=== PATIENT | female | born 1940 | race Caucasian/White ===

== ENCOUNTER 2017-07-24 13:49 | Inpatient (IN) | payer OTHER, MEDICARE ==
[~2017-07-24] VITALS: Ht 167.6 cm; Wt 54.5 kg
[2017-07-24] VITALS (11 sets, daily range): BP systolic 112–175; BP diastolic 58–77; PULSE 64–110; RESP 16–20; TEMP 98.3–99; O2SAT 95–98
[~2017-07-24 13:49] MED LIST: CALA120T PO; DULO60 PO; ENOX40P SQ; HYDR-2768 PO; HYDR200T3 PO; MELA5TAB10 PO; NEUR600T PO; OMPR20CCR PO; OXYC1SOL5 PO; TAB-TAB PO; TYLE500T PO; Z.0.COMMODE-3:1; Z.0.CPM; Z.0.WALKERFRONT
--- NOTE | 2017-07-24 14:40 | PD ---
HPI Chief Complaint: Abdominal Pain Time Seen by Provider: 14:25 Travel History International Travel<30 days: No Contact w/Intl Traveler<30days: No Traveled to known affect area: No History of Present Illness HPI This is a 77-year-old female who reports a history of peptic ulcer disease. She presents for evaluation of chest pain, abdominal pain, nausea and vomiting. She reports that 5 PM yesterday she was sitting in her sunroom which she developed epigastric/substernal pains, nausea, vomiting. She describes the pain as a pressure type pain which has been constant but is more mild today. There are no obvious aggravating or alleviating factors to this pain. She reports today she has had some nausea but no vomiting. She called her automation driver who referred her here. She does report that she had a temperature of 100 yesterday as well as chills. She denies cough or congestion , shortness of breath, diarrhea, dysuria, flank pain. She has no other complaints at this time. 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) Psychiatric: No Reproductive: No Respiratory: No Immunizations Current: Yes Radiation Therapy: No Thyroid Disease: No Past Surgical History Abdominal Surgery: Yes (hernia) AICD: No Body Medical Devices: LEFT BREAST IMPLANT Cardiac Surgery: No Ear Surgery: No Endocrine Surgery: No Genitourinary Surgery: No Gynecologic Surgery: No Joint Replacement: Yes (left knee) Oral Surgery: No Pacemaker: No Thoracic Surgery: No Other Surgery: Yes (mastectomy, ) Social History Alcohol Use: No Tobacco Use: No Substance Use: No Allergies-Medications (Allergen,Severity, Reaction): Coded Allergies: No Known Allergies (Unverified Adverse Reaction, Unknown, 07/24/17) Reported Meds & Prescriptions Reported Meds & Active Scripts Active Reported Extra Strength Pain Relief (Acetaminophen) 500 Mg Tab 1,000 Mg PO Q4-6H PRN Duloxetine DR (Duloxetine HCl) 60 Mg Capdr 60 Mg PO DAILY Gabapentin 600 Mg Tab 600 Mg PO TID Melatonin 10 Mg-1 Mg Tab 10 Mg PO HS PRN Multiple Vitamin 1 Tab 1 Tab PO DAILY Omeprazole 20 Mg Tab 20 Mg PO DAILY Verapamil (Verapamil HCl) 120 Mg Tab 120 Mg PO DAILY Review of Systems Except as stated in HPI: all other systems reviewed are Neg Physical Exam Narrative GENERAL: Pleasant well-developed well-nourished female who is resting comfortably in hospital bed. Her vital signs have been reviewed. SKIN: Warm and dry. HEAD: Atraumatic. Normocephalic. EYES: Pupils equal and round. No scleral icterus. No injection or drainage. ENT: No nasal bleeding or discharge. Mucous membranes pink and moist. NECK: Trachea midline. No JVD. CARDIOVASCULAR: Regular rate and rhythm. No murmur appreciated. RESPIRATORY: No accessory muscle use. Clear to auscultation. Breath sounds equal bilaterally. GASTROINTESTINAL: Abdomen soft, mild epigastric/left upper quadrant tenderness without guarding. MUSCULOSKELETAL: No obvious deformities. No clubbing. No cyanosis. No edema. NEUROLOGICAL: Awake and alert. No obvious cranial nerve deficits. Motor grossly within normal limits. Normal speech. PSYCHIATRIC: Appropriate mood and affect; insight and judgment normal. Data Data Last Documented VS Vital Signs Date Time Temp Pulse Resp B/P (MAP) Pulse Ox O2 Delivery O2 Flow Rate FiO2 07/24/17 16:45 68 16 122/67 (85) 98 Nasal Cannula 07/24/17 15:05 2.00 07/24/17 14:40 98.8 Orders Orders Electrocardiogram (07/24/17 14:01) Ckmb (Isoenzyme) Profile (07/24/17 14:37) Complete Blood Count With Diff (07/24/17 14:37) Magnesium (Mg) (07/24/17 14:37) Prothrombin Time / Inr (Pt) (07/24/17 14:37) Act Partial Throm Time (Ptt) (07/24/17 14:37) Troponin I (07/24/17 14:37) Chest, Single Ap (07/24/17 14:37) Ecg Monitoring (07/24/17 14:37) Bilateral Bp Monitoring (07/24/17 14:37) Iv Access Insert/Monitor (07/24/17 14:37) Oximetry (07/24/17 14:37) Oxygen Administration (07/24/17 14:37) Aspirin Chew (Aspirin Chew) (07/24/17 14:45) Morphine Inj (Morphine Inj) (07/24/17 14:45) Sodium Chloride 0.9% Flush (Ns Flush) (07/24/17 14:45) Nitroglycerin Sl (Nitrostat Sl) (07/24/17 14:45) Comprehensive Metabolic Panel (07/24/17 14:37) Lipase (07/24/17 14:37) Lactic Acid Sepsis Protocol (07/24/17 14:40) Blood Culture (07/24/17 14:40) Al-Mag Hy-Si 40-40-4 Mg/Ml Liq (Mag-Al P (07/24/17 14:45) Lidocaine 2% Viscous (Xylocaine 2% Visco (07/24/17 14:45) CKMB (07/24/17 14:40) CKMB% (07/24/17 14:40) Heparin Infusion NICOLE.Q1H (07/24/17 16:17) Heparin Inj (Heparin Inj) (07/24/17 16:30) Heparin Inj (Heparin Inj) (07/24/17 22:30) Heparin Inj (Heparin Inj) (07/24/17 22:30) Heparin-D5w 25,000 U/250 Ml (Heparin-D5w (07/24/17 16:30) Act Partial Throm Time (Ptt) (07/24/17 16:17) Cbc No Diff, Includes Plts (07/24/17 16:17) Cbc No Diff, Includes Plts (07/27/17 06:00) Act Partial Throm Time (Ptt) (07/24/17 23:17) Occult Blood (Hemoccult) Stool (07/24/17 16:17) Consult Gastroenterology (07/24/17 ) Consult Cardiology (07/24/17 ) Admit To Inpatient (07/24/17 ) Vital Signs (Adult) Q4H (07/24/17 16:37) Activity Oob With Assistance (07/24/17 16:37) Lead Shipper / Telemetry .CONTINUOUS (07/24/17 16:37) Diet Heart Healthy (07/24/17 Dinner) Sodium Chloride 0.9% Flush (Ns Flush) (07/24/17 16:45) Sodium Chloride 0.9% Flush (Ns Flush) (07/24/17 21:00) Acetaminophen (Tylenol) (07/24/17 16:45) Ondansetron Inj (Zofran Inj) (07/24/17 16:45) Basic Metabolic Panel (Bmp) (07/25/17 06:00) Complete Blood Count With Diff (07/25/17 06:00) Troponin I (07/24/17 16:37) Troponin I (07/24/17 22:37) Electrocardiogram (07/24/17 16:37) Electrocardiogram (07/24/17 22:37) Naloxone Inj (Narcan Inj) (07/24/17 16:45) Magnesium Hydroxide Liq (Milk Of Magnesi (07/24/17 16:45) Sennosides (Senokot) (07/24/17 16:45) Bisacodyl Supp (Dulcolax Supp) (07/24/17 16:45) Lactulose Liq (Lactulose Liq) (07/24/17 16:45) Inpatient Certification (07/24/17 ) Cardiac Catheterization (07/24/17 ) Heparin-Ns/Pf Inj (Heparin-Ns/Pf Inj) (07/24/17 16:52) Verapamil Inj (Isoptin Inj) (07/24/17 16:52) Heparin Inj (Heparin Inj) (07/24/17 16:52) Nitroglycerin Inj (Nitroglycerin Inj) (07/24/17 16:52) Labs Laboratory Tests Test 07/24/17 14:40 07/24/17 14:51 White Blood Count 9.3 TH/MM3 Red Blood Count 4.43 MIL/MM3 Hemoglobin 13.7 GM/DL Hematocrit 39.8 % Mean Corpuscular Volume 89.9 FL Mean Corpuscular Hemoglobin 31.0 PG Mean Corpuscular Hemoglobin Concent 34.5 % Red Cell Distribution Width 14.6 % Platelet Count 206 TH/MM3 Mean Platelet Volume 7.3 FL Neutrophils (%) (Auto) 89.1 % Lymphocytes (%) (Auto) 6.1 % Monocytes (%) (Auto) 4.5 % Eosinophils (%) (Auto) 0.2 % Basophils (%) (Auto) 0.1 % Neutrophils # (Auto) 8.3 TH/MM3 Lymphocytes # (Auto) 0.6 TH/MM3 Monocytes # (Auto) 0.4 TH/MM3 Eosinophils # (Auto) 0.0 TH/MM3 Basophils # (Auto) 0.0 TH/MM3 CBC Comment DIFF FINAL Differential Comment Prothrombin Time 10.9 SEC Prothromb Time International Ratio 1.0 RATIO Activated Partial Thromboplast Time 29.6 SEC Blood Urea Nitrogen 10 MG/DL Creatinine 0.69 MG/DL Random Glucose 83 MG/DL Total Protein 7.6 GM/DL Albumin 3.7 GM/DL Calcium Level 8.8 MG/DL Magnesium Level 1.9 MG/DL Alkaline Phosphatase 63 U/L Aspartate Amino Transf (AST/SGOT) 37 U/L Alanine Aminotransferase (ALT/SGPT) 23 U/L Total Bilirubin 0.6 MG/DL Sodium Level 135 MEQ/L Potassium Level 3.2 MEQ/L Chloride Level 100 MEQ/L Carbon Dioxide Level 27.2 MEQ/L Anion Gap 8 MEQ/L Estimat Glomerular Filtration Rate 82 ML/MIN Total Creatine Kinase 127 U/L Creatine Kinase MB 8.2 NG/ML Troponin I 2.53 NG/ML Lipase 96 U/L Lactic Acid Level 0.7 mmol/L [facility] Medical Decision Making Medical Screen Exam Complete: Yes Emergency Medical Condition: Yes Medical Record Reviewed: Yes Interpretation(s) EKG reveals sinus rhythm, slight ST elevation noted isolated in V3. There are T -wave inversions noted in 2, 3, aVF, V4 and V5. Differential Diagnosis Acute coronary syndrome, angina, peptic ulcer disease, pancreatitis, colitis, aortic dissection, pulmonary embolism, gastroenteritis, renal stone, pneumonia Narrative Course The patient was placed on ECG monitoring pulse oximetry. A 12-lead EKG was obtained which reveals slight ST elevation isolated in V3 as well as inferior and lateral T-wave inversions. Plan is for lab work, chest x-ray, urinalysis. The patient will be given sublingual nitroglycerin. The patient's troponin is 2.53. Potassium 3.2. Discussed with Dr. Gerber is agreeable with admission to the medicine service, heparin, and he will consult. Diagnosis Primary Impression: NSTEMI (non-ST elevated myocardial infarction) Admitting Information Admitting Physician Requests: Admit Bebeto Kamara Jul 24, 2017 14:40
[2017-07-24] MEDS ORDERED: SODIUM CHLORIDE 0.9% FLUSH 10 ML FLUSH IVF PRN (14:45)
[2017-07-24] MEDS ORDERED: ASPIRIN 81 MG CHEW TAB PO ONE (14:45)
[2017-07-24] MEDS ORDERED: MORPHINE SULFATE 4 MG/ML INJ IV PUSH ONE (14:45)
[2017-07-24] MEDS ORDERED: ALUMINUM/MAGNESIUM/SIMETH 30 ML CUP PO ONE (14:45)
[2017-07-24] MEDS ORDERED: LIDOCAINE VISCOUS 2% SOLN 15 ML UDC PO ONE (14:45)
[2017-07-24] MEDS ORDERED: VERA120T3 PO (14:49)
[2017-07-24] MEDS ORDERED: MULTTAB67 PO (14:49)
[2017-07-24] MEDS ORDERED: OMEP20TA PO (14:49)
[2017-07-24] MEDS: NITROGLYCERIN 0.4 MG SL 25 TABS/BTL SL SCH ×3 (14:55→15:06)
--- NOTE | 2017-07-24 15:11 | RADRPT ---
EXAM DATE/TIME: 07/24/2017 14:58 [place] COMPARISON: No previous studies available for comparison. INDICATIONS : Chest and abdomen pain today MEDICAL HISTORY : Ulcers. SURGICAL HISTORY : None. ENCOUNTER: Initial ACUITY: 1 day PAIN SCORE: 7/10 LOCATION: Bilateral chest FINDINGS: A single view of the chest demonstrates the lungs to be symmetrically aerated without evidence of mas s, infiltrate or effusion. The cardiomediastinal contours are unremarkable. Osseous structures are intact. CONCLUSION: No acute disease. Kaleb Yin MD FACR on July 24, 2017 at 15:09 Board Certified Radiologist. This report was verified electronically.
[2017-07-24 15:12] LABS: AUTOMATED NEUTROPHIL # 8.3 TH/MM3 (1.8-7.7); BASOPHIL % 0.1 % (0.0-2.0); EOSINOPHIL % 0.2 % (0.0-4.0); HEMATOCRIT 39.8 % (35.0-46.0); HEMO FLAGS DIFF FINAL; LYMPH % 6.1 % (9.0-44.0); LYMPHOCYTE # 0.6 TH/MM3 (1.0-4.8); MEAN CELL VOLUME 89.9 FL (80.0-100.0); MEAN CORPUSCULAR HGB CONC 34.5 % (32.0-36.0); MONO % 4.5 % (0.0-8.0); NEUT % 89.1 % (16.0-70.0); PLATELET COUNT 206 TH/MM3 (150-450); RED BLOOD COUNT 4.43 MIL/MM3 (4.00-5.30); RED CELL DISTRIBUTION WIDTH 14.6 % (11.6-17.2); WHITE BLOOD COUNT 9.3 TH/MM3 (4.0-11.0)
[2017-07-24 15:21] LABS: APTT (PATIENT) 29.6 SEC (24.3-30.1); PROTHROMBIN TIME - PATIENT 10.9 SEC (9.8-11.6)
[2017-07-24] MEDS ORDERED: MELA1TAB18 PO (15:28)
[2017-07-24] MEDS ORDERED: EXTRTAB5 PO (15:28)
[2017-07-24] MEDS ORDERED: GABA600T PO (15:28)
[2017-07-24] MEDS ORDERED: DULO1CAP3 PO (15:28)
[2017-07-24 15:39] LABS: ALT (GPT) 23 U/L (10-53); ANION GAP 8 MEQ/L (5-15); AST (GOT) 37 U/L (15-37); BICARBONATE 27.2 MEQ/L (21.0-32.0); BLOOD UREA NITROGEN 10 MG/DL (7-18); CHLORIDE 100 MEQ/L (98-107); GLOMERULAR FILTRATION RATE 82 ML/MIN (>89); MAGNESIUM 1.9 MG/DL (1.5-2.5); POTASSIUM 3.2 MEQ/L (3.5-5.1); SODIUM (NA) 135 MEQ/L (136-145)
[2017-07-24 15:43] LABS: ALKALINE PHOSPHATASE 63 U/L (45-117); CREATINE KINASE 127 U/L (26-192); TOTAL BILIRUBIN ADULT 0.6 MG/DL (0.2-1.0)
[2017-07-24 16:00] LABS: CKMB 8.2 NG/ML (0.5-3.6)
--- NOTE | 2017-07-24 16:22 | PD ---
Physical Exam Date Seen by Provider: Jul 24, 2017 Time Seen by Provider: 15:00 Narrative This is a 77-year-old female with history of peptic ulcer disease, stomach polyps, colonic ulcers, who presents today with epigastric pain with associated chest discomfort. The patient states it started yesterday. She reports it as burning and tightness. She states that it felt as though it was her peptic ulcer disease was causing this discomfort. She states she called the pole tester and they referred her here for further evaluation. Data Data Last Documented VS Vital Signs Date Time Temp Pulse Resp B/P (MAP) Pulse Ox O2 Delivery O2 Flow Rate FiO2 07/24/17 15:30 64 126/72 (90) 07/24/17 15:05 96 Nasal Cannula 2.00 07/24/17 14:40 98.8 18 Orders Orders Electrocardiogram (07/24/17 14:01) Electrocardiogram (07/24/17 14:37) Ckmb (Isoenzyme) Profile (07/24/17 14:37) Complete Blood Count With Diff (07/24/17 14:37) Magnesium (Mg) (07/24/17 14:37) Prothrombin Time / Inr (Pt) (07/24/17 14:37) Act Partial Throm Time (Ptt) (07/24/17 14:37) Troponin I (07/24/17 14:37) Chest, Single Ap (07/24/17 14:37) Ecg Monitoring (07/24/17 14:37) Bilateral Bp Monitoring (07/24/17 14:37) Iv Access Insert/Monitor (07/24/17 14:37) Oximetry (07/24/17 14:37) Oxygen Administration (07/24/17 14:37) Aspirin Chew (Aspirin Chew) (07/24/17 14:45) Morphine Inj (Morphine Inj) (07/24/17 14:45) Sodium Chloride 0.9% Flush (Ns Flush) (07/24/17 14:45) Nitroglycerin Sl (Nitrostat Sl) (07/24/17 14:45) Comprehensive Metabolic Panel (07/24/17 14:37) Lipase (07/24/17 14:37) Lactic Acid Sepsis Protocol (07/24/17 14:40) Blood Culture (07/24/17 14:40) Al-Mag Hy-Si 40-40-4 Mg/Ml Liq (Mag-Al P (07/24/17 14:45) Lidocaine 2% Viscous (Xylocaine 2% Visco (07/24/17 14:45) CKMB (07/24/17 14:40) CKMB% (07/24/17 14:40) Heparin Infusion NICOLE.Q1H (07/24/17 16:17) Heparin Inj (Heparin Inj) (07/24/17 16:30) Heparin Inj (Heparin Inj) (07/24/17 22:30) Heparin Inj (Heparin Inj) (07/24/17 22:30) Heparin-D5w 25,000 U/250 Ml (Heparin-D5w (07/24/17 16:30) Act Partial Throm Time (Ptt) (07/24/17:17) Cbc No Diff, Includes Plts (07/24/17:17) Cbc No Diff, Includes Plts (07/27/17 06:00) Act Partial Throm Time (Ptt) (07/24/17 23:17) Occult Blood (Hemoccult) Stool (07/24/17 16:17) Consult Gastroenterology (07/24/17 ) Consult Cardiology (07/24/17 ) Admit To Inpatient (07/24/17 ) Vital Signs (Adult) Q4H (07/24/17 16:37) Activity Oob With Assistance (07/24/17 16:37) Hospital Pharmacy Director / Telemetry .CONTINUOUS (07/24/17 16:37) Diet Heart Healthy (07/24/17 Dinner) Sodium Chloride 0.9% Flush (Ns Flush) (07/24/17 16:45) Sodium Chloride 0.9% Flush (Ns Flush) (07/24/17 21:00) Acetaminophen (Tylenol) (07/24/17 16:45) Ondansetron Inj (Zofran Inj) (07/24/17 16:45) Basic Metabolic Panel (Bmp) (07/25/17 06:00) Complete Blood Count With Diff (07/25/17 06:00) Troponin I (07/24/17 16:37) Troponin I (07/24/17 22:37) Electrocardiogram (07/24/17 16:37) Electrocardiogram (07/24/17 22:37) Naloxone Inj (Narcan Inj) (07/24/17 16:45) Magnesium Hydroxide Liq (Milk Of Magnesi (07/24/17 16:45) Sennosides (Senokot) (07/24/17 16:45) Bisacodyl Supp (Dulcolax Supp) (07/24/17 16:45) Lactulose Liq (Lactulose Liq) (07/24/17 16:45) Inpatient Certification (07/24/17 ) Labs Laboratory Tests Test 07/24/17 14:40 07/24/17 14:51 White Blood Count 9.3 TH/MM3 Red Blood Count 4.43 MIL/MM3 Hemoglobin 13.7 GM/DL Hematocrit 39.8 % Mean Corpuscular Volume 89.9 FL Mean Corpuscular Hemoglobin 31.0 PG Mean Corpuscular Hemoglobin Concent 34.5 % Red Cell Distribution Width 14.6 % Platelet Count 206 TH/MM3 Mean Platelet Volume 7.3 FL Neutrophils (%) (Auto) 89.1 % Lymphocytes (%) (Auto) 6.1 % Monocytes (%) (Auto) 4.5 % Eosinophils (%) (Auto) 0.2 % Basophils (%) (Auto) 0.1 % Neutrophils # (Auto) 8.3 TH/MM3 Lymphocytes # (Auto) 0.6 TH/MM3 Monocytes # (Auto) 0.4 TH/MM3 Eosinophils # (Auto) 0.0 TH/MM3 Basophils # (Auto) 0.0 TH/MM3 CBC Comment DIFF FINAL Differential Comment Prothrombin Time 10.9 SEC Prothromb Time International Ratio 1.0 RATIO Activated Partial Thromboplast Time 29.6 SEC Blood Urea Nitrogen 10 MG/DL Creatinine 0.69 MG/DL Random Glucose 83 MG/DL Total Protein 7.6 GM/DL Albumin 3.7 GM/DL Calcium Level 8.8 MG/DL Magnesium Level 1.9 MG/DL Alkaline Phosphatase 63 U/L Aspartate Amino Transf (AST/SGOT) 37 U/L Alanine Aminotransferase (ALT/SGPT) 23 U/L Total Bilirubin 0.6 MG/DL Sodium Level 135 MEQ/L Potassium Level 3.2 MEQ/L Chloride Level 100 MEQ/L Carbon Dioxide Level 27.2 MEQ/L Anion Gap 8 MEQ/L Estimat Glomerular Filtration Rate 82 ML/MIN Total Creatine Kinase 127 U/L Creatine Kinase MB 8.2 NG/ML Troponin I 2.53 NG/ML Lipase 96 U/L Lactic Acid Level 0.7 mmol/L [facility] Medical Record Reviewed: Yes Supervised Visit with LUCIEN: Yes Narrative Course 77-year-old female history of peptic ulcer disease, colonic ulcers and stomach polyps, presents here with epigastric pain and chest tightness. The patient's EKG showed slight elevation of the ST segment in leads V3. V4 showed inverted T wave. This is compared with an EKG from 2015 which shows that these are new changes. Patient's troponin comes back at 2.5. She been given an aspirin and nitroglycerin. She states her pain in the chest is nearly gone. She still reported mild discomfort in her epigastrium. Case was discussed with Dr. Gerber who agreed with the plan to heparinize her. He plans to take her to the Final Installer Inspector. She'll be admitted to the hospital to the CICU. [facility]. Diagnosis Primary Impression: NSTEMI (non-ST elevated myocardial infarction) Additional Impression: History of peptic ulcer disease Admitting Information Admitting Physician Requests: Admit Farhan Giordano MD Jul 24, 2017 16:22
[2017-07-24] MEDS ORDERED: HEPARIN SODIUM - IV 10,000 UNITS/10 ML VIAL IV ONE (16:30)
[2017-07-24] MEDS ORDERED: HEPARIN-D5W 25,000 U/250 ML 250 ML IV PRN (16:30)
[2017-07-24] MEDS ORDERED: MAGNESIUM HYDROXIDE SUSP 30 ML CUP PO PRN (16:45)
[2017-07-24] MEDS ORDERED: NALOXONE HCL 0.4 MG/ML AMP IV PUSH PRN (16:45)
[2017-07-24] MEDS ORDERED: ONDANSETRON HCL 4 MG/2 ML VIAL IVP PRN (16:45)
[2017-07-24] MEDS ORDERED: BISACODYL 10 MG SUPP RECTAL PRN (16:45)
[2017-07-24] MEDS ORDERED: SODIUM CHLORIDE 0.9% FLUSH 10 ML FLUSH IV FLUSH PRN (16:45)
[2017-07-24] MEDS ORDERED: LACTULOSE SYRUP 20 GM/30 ML CUP PO PRN (16:45)
[2017-07-24] MEDS ORDERED: SENNOSIDES 8.6 MG TAB PO PRN (16:45)
[2017-07-24] MEDS ORDERED: HEPARIN SODIUM - IV 10,000 UNITS/10 ML VIAL ONE (16:52)
[2017-07-24] MEDS ORDERED: HEPARIN-NS/PF INJ 500 ML ONE (16:52)
[2017-07-24] MEDS ORDERED: VERAPAMIL HCL 5 MG/2 ML VIAL ONE (16:52)
[2017-07-24] MEDS ORDERED: NITROGLYCERIN INJ 5 ML ONE (16:52)
--- NOTE | 2017-07-24 18:01 | MB ---
cc: UNRULY ONEAL M.D., RIZALINA M.D. [facility], PEDRO DATE OF CONSULTATION 07/24/2017 DATE OF [address] Unruly Oneal. HISTORY OF THE PRESENT ILLNESS The patient is a 77-year-old white female known to our group. She called me through the answering service last evening with a complaint of severe epigastric pain. I called her back immediately and left a message for her to call me back. She called the office back this morning complaining I never called back and then she found out after the fact that I had called her back and she never saw the message. She was admitted to the hospital after complaining again of severe pain. She describes a feeling of asthenia after hinduism yesterday and took a nap for a few hours. Upon awakening yesterday afternoon to evening she developed severe pain in the epigastrium with radiation into the chest with dyspnea but no palpitations. She had nausea and some vomiting of food matter. No diaphoresis. No radiation to the arms. No prior episodes similar to this. MEDICAL HISTORY Significant for: 1. Breast cancer. 2. Acid reflux disease. 3. Gastric ulcers related to meloxicam which was stopped this past May. 4. She has had urinary tract infections. 5. She has arthritic complaints with bulging disk. 6. 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 PAST SURGICAL HISTORY 1. Abdominal hernia. 2. Left breast implant after mastectomy. 3. Left knee replacement. SOCIAL HISTORY Alcohol use none. Tobacco use none. ALLERGIES None known to medications. MEDICATIONS On admission: 1. Acetaminophen. 2. Duloxetine. 3. Gabapentin. 4. Melatonin. 5. Multivitamin. 6. Omeprazole 20 mg daily. 7. Verapamil. REVIEW OF SYSTEMS She has had no recent headaches. No history of seizures or strokes. No history of dysphagia or odynophagia. No recent heartburn or dyspeptic symptoms. No urinary symptomatology recently. She has loss 25 pounds recently with unclear cause. She has had no history of liver disease or pancreatic disease or diabetes. PHYSICAL EXAMINATION VITAL SIGNS: Her weight is 54 kg, temperature 98.8, pulse 64, blood pressure 126/72, saturation 96% on 2 liters. GENERAL: She is alert. She is oriented x3. HEENT: She is anicteric. Extraocular motions are intact. LYMPHATICS: I appreciate no submandibular, cervical, supraclavicular, axillary or epitrochlear adenopathy. LUNGS: Clear to auscultation. CARDIOVASCULAR: Heart exam regular rate and rhythm with a 1/6 systolic murmur. ABDOMEN: Good bowel sounds with no appreciable bruit. The abdomen is soft with minimal epigastric and sternal tenderness. No masses or hepatosplenomegaly noted. EXTREMITIES: No pedal edema, Dupuytren's contractures or palmar erythema. RECTAL: Good sphincter tone. No masses. No tenderness. Brown stool tests hemoccult negative. LABORATORY FINDINGS White count 9.3, hemoglobin 13.7, platelets 206. Sodium 135, potassium 3.2. Liver enzymes normal. Lipase normal. Troponin elevated at 2.53 with a CK-MB of 8.2. INR 1.0. IMAGING Chest x-ray reveals no acute disease. IMPRESSION Severe epigastric and chest pain with abnormal EKG and CPK and troponins consistent with a myocardial infarction probably a non-ST elevation myocardial infarction. At this point the omeprazole or pantoprazole should be continued routinely. No GI evaluation is necessary at this time. Cardiology has been consulted. MD FABIENNE Bowen/LICO /4:13 PM /5:37 PM
[2017-07-24] MEDS: SODIUM CHLORIDE 0.9% FLUSH 10 ML FLUSH IV FLUSH SCH (21:00)
[2017-07-24] MEDS ORDERED: DULoxetine HCl DR 60 MG CAP PO ONE (21:45)
[2017-07-24] MEDS ORDERED: GABAPENTIN 300 MG CAP PO ONE (22:15)
--- NOTE | 2017-07-24 22:17 | MB ---
cc: JT GARCIA DATE OF CONSULTATION 07/24/2017 REASON FOR CONSULTATION Chest pain, elevated troponin. HISTORY OF PRESENT ILLNESS 77-year-old female with a past medical history significant for mitral valve prolapse, gastroesophageal reflux disease, esophageal stricture with dilation, peptic ulcers presented to the hospital with epigastric chest discomfort that started today. On evaluation EKG shows sinus rhythm with T-wave inversions in the lateral leads. The first set of cardiac markers, troponin positive with a value of 2.53, thus cardiology consulted for further management and evaluation. REVIEW OF SYSTEMS Negative except for what is mentioned in HPI. PAST MEDICAL HISTORY 1. Gastroesophageal reflux disease. 2. Esophageal strictures. 3. Peptic ulcers. 4. Weight loss. 5. She had a negative colonoscopy, endoscopy recently. 6. Hypertension. PAST SURGICAL HISTORY 1. Colonoscopy. 2. She had a coronary angiogram in 1975 which was unremarkable. 3. Bilateral knee replacements. HOME MEDICATIONS 1. Acetaminophen. 2. Duloxetine. 3. Gabapentin. 4. Melatonin. 5. Multivitamin. 6. Omeprazole. 7. Verapamil. PHYSICAL EXAMINATION VITAL SIGNS: Temperature 98.8, respiratory rate 16, heart rate 68, blood pressure 122/67, O2 sat 98% on 2 liters nasal cannula. GENERAL: She is awake, alert, oriented times three in no acute distress. NECK: No JVD or carotid bruits. HEART: Regular rate and rhythm. No murmurs, rubs or gallops. LUNGS: Clear to auscultation bilaterally. No wheezes, rhonchi or rales. ABDOMEN: Soft, nontender, nondistended. Positive bowel sounds. EXTREMITIES: No cyanosis or edema. Pulses throughout. LABORATORY DATA CBC, hemoglobin 13, hematocrit 39, platelet count 206. INR 1.0. Chemistries, sodium 135, potassium 3.2, chloride 100, BUN 10, creatinine 0.69. Troponin 2.53. Chest x-ray no acute cardiopulmonary process. EKG sinus rhythm with an T-wave inversions in lateral leads. There is a questionably isolated ST-elevation in lead III. ASSESSMENT/PLAN A 77-year-old female with cardiac risk factors that include age and hypertension that presents with a sub-epigastric chest discomfort. She has a positive troponin and T-wave inversions in EKG which appear to be new. Currently she remains chest pain free. She is hemodynamically stable. The first troponin 2.5. Given the patient's presentation chest pain, elevated troponin, I think it is reasonable to take her to the cardiac mason tender restoration labor to further assess CAD. Risks and benefits of left heart catheterization including but not limited to neurovascular trauma, infection, bleeding, kidney injury, stroke, emergent bypass surgery and have been explained to the patient. The patient understands the risk and she is willing to proceed. Of note, endoscopy results and colonoscopy results in the chart. There were no signs of active bleeding. She does appear to have some chronic healed ulcers on the gastric mucosa. Thank you for the opportunity to take part in the care of this patient. Further management to be determined. MD NITHYA Lyman/KK /5:37 PM /10:05 PM SANDY
[2017-07-24] MEDS: MELATONIN 5 MG TAB PO PRN (22:18)
[2017-07-24] MEDS: ACETAMINOPHEN 325 MG TAB PO PRN (22:28)
[2017-07-24] MEDS ORDERED: HEPARIN SODIUM - IV 10,000 UNITS/10 ML VIAL IV PRN ×2 (22:30)
[2017-07-24] MEDS: NITROGLYCERIN 0.3 MG SL 100 TABS/BTL SL PRN ×2 (23:11→23:34)
[2017-07-25] VITALS (23 sets, daily range): BP systolic 106–150; BP diastolic 53–71; PULSE 58–98; RESP 16–20; TEMP 98.2–98.7; O2SAT 94–100
[2017-07-25] MEDS ORDERED: POTASSIUM CHLORIDE 10 MEQ CONTROLLED RELEASE TAB PO ONE (01:00)
[2017-07-25] MEDS ORDERED: METOPROLOL TARTRATE 25 MG TAB PO ONE (01:15)
--- NOTE | 2017-07-25 01:19 | HHI.HP ---
[facility] Service [facility] Primary Care Physician Unknown Admission Diagnosis Diagnoses: Travel History International Travel<30 Days: No Contact w/Intl Traveler <30 Da: No Traveled to Known Affected Are: No History of Present Illness 77-year-old female with a history of mitral valve prolapse, GERD, who presents with a one-day history of constant, nonradiating epigastric pressure sensation began around 5 PM on 07/23. She also reports nausea with vomiting food, however this has resolved. Denies any hematemesis. She reports subjective fevers on 07/23, as well as chills today. Denies any shortness of breath, cough , dysuria. Review of Systems Except as stated in HPI: all other systems reviewed are Neg Past Family Social History Past Medical History Breast cancer status post mastectomy Acid reflux History of gastric ulcers secondary to meloxicam in 2016 History of UTIs. Degenerative disc disease Peripheral neuropathy Patient reports history of mitral valve prolapse Patient reports a history of unknown arrhythmia. She is on verapamil. Past Surgical History Abdominal hernia surgery Breast reconstruction surgery Left knee replacement Reported Medications Reported Meds & Active Scripts Active Reported Extra Strength Pain Relief (Acetaminophen) 500 Mg Tab 1,000 Mg PO Q4-6H PRN Duloxetine DR (Duloxetine HCl) 60 Mg Capdr 60 Mg PO DAILY Gabapentin 600 Mg Tab 600 Mg PO TID Melatonin 10 Mg-1 Mg Tab 10 Mg PO HS PRN Multiple Vitamin 1 Tab 1 Tab PO DAILY Omeprazole 20 Mg Tab 20 Mg PO DAILY Verapamil (Verapamil HCl) 120 Mg Tab 120 Mg PO DAILY Allergies: Coded Allergies: No Known Allergies (Unverified Adverse Reaction, Unknown, 07/24/17) Family History Mother at age 101. Father due to heart attack at age 59 Social History Nonsmoker. Patient reports very rare alcohol use. Denies any illicit drugs. Physical Exam Vital Signs Vital Signs Date Time Temp Pulse Resp B/P (MAP) Pulse Ox O2 Delivery O2 Flow Rate FiO2 07/24/17 23:52 98.5 74 16 118/59 (78) 96 07/24/17 23:52 69 07/24/17 22:00 68 07/24/17 21:00 110 07/24/17 20:00 86 07/24/17 19:20 98.3 98 16 112/77 (89) 95 07/24/17 19:20 68 07/24/17 16:45 68 16 122/67 (85) 98 Nasal Cannula 07/24/17 15:30 64 126/72 (90) 07/24/17 15:05 96 Nasal Cannula 2.00 07/24/17 14:42 68 124/58 (80) 07/24/17 14:40 98.8 69 18 124/58 (80) 97 07/24/17 14:40 84 127/59 (81) 07/24/17 13:53 99.0 97 20 116/62 (80) 98 Physical Exam GENERAL: This is a well-nourished, well-developed patient, in no apparent distress. Hard of hearing. SKIN: No rashes, ecchymoses or lesions. Cool and dry. HEAD: Atraumatic. Normocephalic. No temporal or scalp tenderness. EYES: Pupils equal round and reactive. Extraocular motions intact. No scleral icterus. No injection or drainage. ENT: Nose without bleeding, purulent drainage or septal hematoma. Throat without erythema, tonsillar hypertrophy or exudate. Uvula midline. Airway patent. NECK: Trachea midline. No JVD or lymphadenopathy. Supple, nontender, no meningeal signs. CARDIOVASCULAR: Regular rate and rhythm without murmurs, gallops, or rubs. RESPIRATORY: Clear to auscultation. Breath sounds equal bilaterally. No wheezes , rales, or rhonchi. GASTROINTESTINAL: Abdomen soft, non-tender, nondistended. No hepato-splenomegaly , or palpable masses. No guarding. MUSCULOSKELETAL: Extremities without clubbing, cyanosis, or edema. No joint tenderness, effusion, or edema noted. No calf tenderness. Negative Homans sign bilaterally. NEUROLOGICAL: Awake and alert. Cranial nerves II through XII intact. Motor and sensory grossly within normal limits. Five out of 5 muscle strength in all muscle groups. Normal speech. Laboratory Laboratory Tests Test 07/24/17 14:40 07/24/17 14:51 07/24/17 21:32 White Blood Count 9.3 Red Blood Count 4.43 Hemoglobin 13.7 Hematocrit 39.8 Mean Corpuscular Volume 89.9 Mean Corpuscular Hemoglobin 31.0 Mean Corpuscular Hemoglobin Concent 34.5 Red Cell Distribution Width 14.6 Platelet Count 206 Mean Platelet Volume 7.3 Neutrophils (%) (Auto) 89.1 Lymphocytes (%) (Auto) 6.1 Monocytes (%) (Auto) 4.5 Eosinophils (%) (Auto) 0.2 Basophils (%) (Auto) 0.1 Neutrophils # (Auto) 8.3 Lymphocytes # (Auto) 0.6 Monocytes # (Auto) 0.4 Eosinophils # (Auto) 0.0 Basophils # (Auto) 0.0 CBC Comment DIFF FINAL Differential Comment Prothrombin Time 10.9 Prothromb Time International Ratio 1.0 Activated Partial Thromboplast Time 29.6 Blood Urea Nitrogen 10 Creatinine 0.69 Random Glucose 83 Total Protein 7.6 Albumin 3.7 Calcium Level 8.8 Magnesium Level 1.9 Alkaline Phosphatase 63 Aspartate Amino Transf (AST/SGOT) 37 Alanine Aminotransferase (ALT/SGPT) 23 Total Bilirubin 0.6 Sodium Level 135 Potassium Level 3.2 Chloride Level 100 Carbon Dioxide Level 27.2 Anion Gap 8 Estimat Glomerular Filtration Rate 82 Total Creatine Kinase 127 Creatine Kinase MB 8.2 Troponin I 2.53 3.24 Lipase 96 Lactic Acid Level 0.7 Date/Time Source Procedure Growth Status 07/24/17 14:50 Blood Peripheral Aerobic Blood Culture Pending Received 07/24/17 14:50 Blood Peripheral Anaerobic Blood Culture Pending Received Result Diagram: 07/24/17 1440 07/24/17 1440 Imaging Last Impressions Chest X-Ray 07/24/17 1437 Signed Impressions: Service Date/Time: Monday, July 24, 2017 14:58 - CONCLUSION: No acute disease. Kaleb Yin MD FACR Caprini VTE Risk Assessment Caprini VTE Risk Assessment: Mod/High Risk (score >= 2) Caprini Risk Assessment Model Point Value = 1 Point Value = 2 Point Value = 3 Point Value = 5 Age 41-60 Minor surgery BMI > 25 kg/m2 Swollen legs Varicose veins or History of unexplained or recurrent spontaneous Oral contraceptives or hormone replacement Sepsis (< 1 month) Serious lung disease, including pneumonia (< 1 month) Abnormal pulmonary function Acute myocardial infarction Congestive heart failure (< 1 month) History of inflammatory bowel disease Medical patient at bed rest Age 61-74 Arthroscopic surgery Major open surgery (> 45 min) Laparoscopic surgery (> 45 min) Malignancy Confined to bed (> 72 hours) Immobilizing plaster cast Central venous access Age >= 75 History of VTE Family history of VTE Factor V Leiden Prothrombin 25136Q Lupus anticoagulant Anticardiolipin antibodies Elevated serum homocysteine Heparin-induced thrombocytopenia Other congenital or acquired thrombophilia Stroke (< 1 month) Elective arthroplasty Hip, pelvis, or leg fracture Acute spinal cord injury (< 1 month) Prophylaxis Regimen Total Risk Factor Score Risk Level Prophylaxis Regimen 0-1 Low Early ambulation 2 Moderate Order ONE of the following: *Sequential Compression Device (SCD) *Heparin 5000 units SQ BID 3-4 Higher Order ONE of the following medications: *Heparin 5000 units SQ TID *Enoxaparin/Lovenox 40 mg SQ daily (WT < 150 kg, CrCl > 30 mL/min) *Enoxaparin/Lovenox 30 mg SQ daily (WT < 150 kg, CrCl > 10-29 mL/min) *Enoxaparin/Lovenox 30 mg SQ BID (WT < 150 kg, CrCl > 30 mL/min) AND/OR *Sequential Compression Device (SCD) 5 or more Highest Order ONE of the following medications: *Heparin 5000 units SQ TID (Preferred with Epidurals) *Enoxaparin/Lovenox 40 mg SQ daily (WT < 150 kg, CrCl > 30 mL/min) *Enoxaparin/Lovenox 30 mg SQ daily (WT < 150 kg, CrCl > 10-29 mL/min) *Enoxaparin/Lovenox 30 mg SQ BID (WT < 150 kg, CrCl > 30 mL/min) AND *Sequential Compression Device (SCD) Assessment and Plan Assessment and Plan //NSTEMI //Heart arrhythmia. -Chest pressure sensation started 07/23 around 5 PM. -Chest x-ray negative on admission. EKG with inverted T waves. -Troponin 2.5 on admission, subsequently 3.24. Patient says that chest pressure has improved -Patient was initially planned for catheterization last night, however due to need for Lab for an outpatient, catheterization has been scheduled for this morning. -Hold off on verapamil. Start beta sofia. Monitor heart rate. Nitroglycerin as needed for chest pain. Patient is on heparin drip. -Cardiology following. Appreciate assistance //Hypokalemia. Potassium 3.2. Magnesium within normal limits. Replaced. //Nausea with vomiting. This has improved. GI was consulted. Appreciate assistance. //GERD. Continue PPI. //Neuropathy. Continue gabapentin. Continue Cymbalta. Patient denies depression. Denies SI. Discussed Condition With Patient, nurse, Dr Whatley Physician Certification 2 Midnight Certification Type: Admission for Inpatient Services Order for Inpatient Services The services are ordered in accordance with Medicare regulations or non- Medicare payer requirements, as applicable. In the case of services not specified as inpatient-only, they are appropriately provided as inpatient services in accordance with the 2-midnight benchmark. Estimated LOS (days): 2 days is the estimated time the patient will need to remain in the hospital, assuming treatment plan goals are met and no additional complications. Post-Hospital Plan: Not yet determined Kevin Woody MD Jul 25, 2017 01:19
[2017-07-25 05:25] LABS: AUTOMATED NEUTROPHIL # 4.7 TH/MM3 (1.8-7.7); BASOPHIL % 0.5 % (0.0-2.0); EOSINOPHIL % 0.7 % (0.0-4.0); HEMATOCRIT 35.1 % (35.0-46.0); HEMO FLAGS DIFF FINAL; LYMPH % 19.1 % (9.0-44.0); LYMPHOCYTE # 1.3 TH/MM3 (1.0-4.8); MEAN CELL VOLUME 90.9 FL (80.0-100.0); MONO % 8.6 % (0.0-8.0); NEUT % 71.1 % (16.0-70.0); PLATELET COUNT 169 TH/MM3 (150-450); RED BLOOD COUNT 3.86 MIL/MM3 (4.00-5.30); RED CELL DISTRIBUTION WIDTH 14.4 % (11.6-17.2); WHITE BLOOD COUNT 6.6 TH/MM3 (4.0-11.0)
[2017-07-25 05:50] LABS: APTT (PATIENT) 43.1 SEC (24.3-30.1)
[2017-07-25 06:04] LABS: BICARBONATE 25.8 MEQ/L (21.0-32.0); POTASSIUM 3.7 MEQ/L (3.5-5.1)
[2017-07-25] MEDS: METOPROLOL TARTRATE 25 MG TAB PO SCH ×2 (09:30→20:25)
[2017-07-25] MEDS: ASPIRIN EC 81 MG TABEC PO SCH (09:31)
[2017-07-25] MEDS: PANTOPRAZOLE SOD 20 MG DELAYED RELEASE TAB PO SCH (09:31)
[2017-07-25] MEDS: GABAPENTIN 300 MG CAP PO SCH ×3 (09:31→20:26)
[2017-07-25] MEDS: SODIUM CHLORIDE 0.9% FLUSH 10 ML FLUSH IV FLUSH SCH ×2 (09:32→20:26)
[2017-07-25] MEDS: ACETAMINOPHEN 325 MG TAB PO PRN ×2 (09:38→17:59)
[2017-07-25] MEDS ORDERED: NITROGLYCERIN INJ 5 ML ONE (12:29)
[2017-07-25] MEDS ORDERED: VERAPAMIL HCL 5 MG/2 ML VIAL ONE (12:29)
[2017-07-25] MEDS ORDERED: MIDAZOLAM HCL 2 MG/2 ML VIAL ONE (12:29)
[2017-07-25] MEDS ORDERED: HEPARIN SODIUM - IV 10,000 UNITS/10 ML VIAL ONE (12:29)
--- NOTE | 2017-07-25 13:17 | CATHPROC ---
[employer] HIS Report Study Information Study Number Admission Scheduled Start Study Start [id number] Jul 24 2017 1:49PM 07/24/2017 Jul 24 2017 4:52PM [place] [facility] Cardiac Catheterization Admit Source Facility Department Emergency department [facility] - [facility] Physician and Clinical Staff Initial Tavo Alexis [employer] MakerCara Kaiser BSN [employer]s Maker Marsha Briggs,EDMUNDO Other cathlab, cathlab Recorder Yonis Wilkins RCIS(BS) Leslee Conley RCIS TECHJessica Procedures Performed Procedure Location (Site) Vessel Name Coronary Angiograms LCA Left Coronary Coronary Angiograms RCA Right Coronary L Heart Cath LV Gram-hand inj. LV LV Ventricle Equipment Time Vat House Laborer Description Size Mfg Part Number Used/Scraped TRANSDUCER, TRUWAVE [id number] 12:19 WARREN MAGANA * Used W/STOCKCOCK *[id number] [id number] *[id number] [id number] *[id number] 12:19 [employer] PACK, CCL CUSTOM * Used *[id number] 12:19 [employer] SUPPORT, ARTERIAL ADULT 34421 *[id number] Used BAND, RADIAL COMPRESSION TR [id number] 13:11 [employer] MEDICAL 24CM Used SHORT 24 *[id number] 12:19 [employer] WIRE, 3MMJ .035 180CM 180CM Used *[id number] 12:19 [employer] MANIFOLD, 4 PORT * Used *[id number] 12:19 [employer] OMNIPAQUE, 350 MG, 150ML 150ML [id number] Used [id number] 12:19 [employer] BLANKET,WARM AIR CCL * Used *[id number] SHEATH, FR6 TRANSRADIAL RM*[id number] 12:19 [employer] MEDICAL FR 6 Used SLENDER 10CM *[id number] History: Current Medications Medication Dosage/Unit Route Frequency Last Date/Time Taken Beta Sandra ASA History: Allergies Allergy Reaction No Known Allergies History: Risk Factors Family History of Hypertension Dyslipidemia Previous DC Previous Heart Failure Premature CAD Yes No Yes No No Prior Valve Prior PCI Prior CABG Surgery No No No Cerebrovascular Peripheral Artery Chronic Lung On Dialysis Diabetes Disease Disease Disease No No No No No History: Stress Tests Stress or Imaging Studies Performed No History: Other Disease Selection Items HTN History: Other Current Smoker Method Quit Packs a Day Years Used Pack Years No Cigarettes 25 Years Ago 1 5 5 Labs Hgb (g/dl) Hct (%) WBC (l/cumm) Platelets (thousands) 11.60-17.00 35.00-51.00 4.00-11.00 150.00-450.00 13.7 39.8 9.3 206 Glucose (mg/dl) BUN (mg/dl) Creatinine (mg/dl) BUN:Creatinine (1:x) 74.00-106.00 7.00-18.00 0.50-1.30 10.00-20.00 83 10 0.6 16.7 Na (meq/l) K (meq/l) 136.00-145.00 3.50-5.10 135 3.2 INR (PTT:PT) 0.90-1.10 1 Troponin I (ng/ml) CPK (u/l) CPK-MB (ng/ML) 0.02-0.05 26.00-308.00 0.50-3.60 2.53 127 8.2 Medication Medication Total Dose (Bolus/Oral) Medication Total Dosage/Unit 1% XYLOCAINE 3 mL FENTANYL 50 mcg RADIAL COCKTAIL 5 mL (Bolus) VERSED 2 mg Medications (Bolus/Oral) Medication Time Given Dosage/Unit Administered By Reason VERSED 07/25/2017 1:02:45 PM 2 mg Cara Olivas 2 mg VERSED given in lab by Cara Olivas BSN in Left Antecubital via Peripheral IV. Ordered b y Tavo Arredondo. FENTANYL 07/25/2017 1:03:03 PM 50 mcg Cara Olivas 50 mcg FENTANYL given in lab by Cara Olivas BSN in Left Antecubital via Peripheral IV. Order ed by Tavo Arredondo. 1% XYLOCAINE 07/25/2017 1:03:32 PM 3 mL Tavo Arredondo 3 mL 1% XYLOCAINE given in lab by Tavo Arredondo in Right Radial via Subcutaneous. Ntg 200mcg Verapamil 2.5mg Heparin RADIAL COCKTAIL 07/25/2017 1:04:55 PM 5 mL (Bolus) Mike Arredondoro 2500U 5 mL (Bolus) RADIAL COCKTAIL given in lab by Gerber-Luc, Tavo via Radial. Using [Solution Name]. Mavis son: Ntg 200mcg Verapamil 2.5mg Heparin 2500U. Medication (Drip) Medication Time Given Dosage/Unit Concentration/Unit Diluent (ml) Delroy chambers 07/25/2017 12:17:46 IV Solutions 0 mL (IV) 500 NaCl .9 PM Patient arrived on IV Solutions given by cathlab, cathlab in Left Antecubital via Peripheral IV. Pump /Drip Flow = 20 ml/hr using NaCl .9. Ordered by Tavo Arredondo. Initial Case Assessment Cardiovascular HR Rhythm NIBP Chest Pain 72 nsr 129/66 0 Edema Present Skin color Skin None Normal Warm Dry Circulatory - Right Pulses Dorsalis Pedis Femoral Radial 2 2 2 Scale (0,1,2,3,4,d) Scale (0,1,2,3,4,d) Neurological State Oriented to time-place- Alert Moves all extremities person Respiration - General Respiration Rate SpO2 (%) (B/min) 15 95 Final Case Assessment Cardiovascular HR Rhythm NIBP Chest Pain 78 nsr 93/46 0 Edema Present Skin color Skin None Normal Warm Dry Circulatory - Right Pulses Dorsalis Pedis Femoral Radial 2 2 2 Scale (0,1,2,3,4,d) Scale (0,1,2,3,4,d) Neurological State Oriented to time-place- Alert Moves all extremities person Respiration - General Respiration Rate SpO2 (%) (B/min) 15 95 Chronological Log Time Study Chronological Log 12:17:36 Patient arrived via Bed. 12:17:37 Patient Name, D.O.B, / Armband Verified By R.N. 12:17:37 Consent signed by the physician and the patient and verified by the [facility] staff. 12:17:38 Pre-op and post- op instructions given; patient acknowledges understanding of instructions. 12:17:38 Verbal Stimulation=2 Physical Stimulation=2 Airway=2 Respiration=2 TOTAL=8. (0=absent, 1=li mited, 2=present) 12:17:39 Presedation assessment performed by [facility] RN. 12:17:39 Allens test performed on the right radial and ulnar artery. 12:17:41 Immediate Presedation assesment performed by physician. 12:17:41 Patient has been NPO for More than 6Hrs. 12:17:42 Skin Breakdown- none per patient 12:17:42 Patient Warmer Placed on the Table. 12:17:43 Ashish Prominences Protected 12:17:45 A # 20 IV was noted in the Antecubital (left). Grade = 0 Patient arrived on IV Solutions given by cathlab, cathlab in Left Antecubital via Peripheral IV . Pump/Drip Flow = 20 12:17:46 ml/hr using NaCl .9. Ordered by Tavo Arredondo. 12:17:46 History and physical on the chart or being dictated. Vitals capture started with the following parameters, Patient=Adult, Interval=5 min, Initial Pr ojtwoc=701 mmHg, 12:23:36 Deflation Rate=5 mmHg, Cuff placed on Right Arm Assessment: Initial Case, HR=72 BPM, Rhythm=nsr, VQRV=494/66 mmhg, Chest Pain=0, Edema=None, Co agusto=Normal, Skin = Warm, Dry 12:23:37 Right Pulses: Tae Ped=2, Femoral=2, Radial=2 Neurological: State=Alert, Ox3, STEPHENS Respiration: Resp=15 B/min, SpO2=95 % 12:24:09 HR=72 bpm, DVAO=394/66 mmhg, SpO2=95 %, Resp=15 B/min, Pain=0, Roney=10, Banda=2 12:27:27 Reference ECG taken 12:29:12 HR=71 bpm, UMKE=895/59 mmhg, SpO2=95.0 %, Resp=14 B/min, Pain=0, Roney=10, Banda=2 12:32:25 Right Radial and groin(s) prepped with 2% chlorhexidine, and draped after a 3 min. waiting time. 12:34:09 HR=63 bpm, MSBX=828/63 mmhg, SpO2=98.0 %, Resp=15 B/min, Pain=0, Roney=10, Banda=2 12:34:52 MD paged 12:35:02 MD responded 12:39:10 HR=60 bpm, CSRA=265/53 mmhg, SpO2=96.0 %, Resp=11 B/min, Pain=0, Roney=10, Banda=2 12:39:34 Pressure channel 1 zeroed. 12:44:11 HR=62 bpm, LHEY=581/53 mmhg, SpO2=95.0 %, Resp=16 B/min, Pain=0, Roney=10, Banda=2 12:49:06 HR=62 bpm, RGDD=973/66 mmhg, SpO2=94.0 %, Resp=12 B/min, Pain=0, Roney=10, Banda=2 12:54:09 HR=62 bpm, VNQL=229/65 mmhg, SpO2=96.0 %, Resp=13 B/min, Pain=0, Roney=10, Banda=2 12:56:20 MD notified again 12:59:11 HR=62 bpm, GSKK=381/66 mmhg, SpO2=96.0 %, Resp=12 B/min, Pain=0, Roney=10, Banda=2 12:59:44 MD arrived. 12:59:46 Contrast Scanned 12:59:47 Immediate Presedation assesment performed by physician. Time Out. Correct patient, correct procedure, correct physician, power injector not loaded with contrast with surgical 13:01:57 team present. Time Out Concurred by MD and individual staff in procedure. 13:02:28 Case Start 13:02:29 Verbal Stimulation=2 Physical Stimulation=2 Airway=2 Respiration=2 TOTAL=8. (0=absent, 1=li mited, 2=present) 2 mg VERSED given in lab by Cara Olivas BSN in Left Antecubital via Peripheral IV. Ord ered by Arnulfo, 13:02:45 Tavo. 50 mcg FENTANYL given in lab by Cara Olivas BSN in Left Antecubital via Peripheral IV. Ordered by Gerber- 13:03:03 Tavo Calle. 13:03:32 3 mL 1% XYLOCAINE given in lab by Tavo Arredondo in Right Radial via Subcutaneous. 13:04:04 Access site was Right Radial Artery. A SHEATH, FR6 TRANSRADIAL SLENDER 10CM FR 6 was advanced into the Radial (right) using the Perc utaneous 13:04:13 technique. 13:04:14 HR=71 bpm, XOZQ=793/55 mmhg, SpO2=97.0 %, Resp=15 B/min, Pain=0, Roney=10, Banda=2 5 mL (Bolus) RADIAL COCKTAIL given in lab by Tavo Arredondo via Radial. Using [Solution Name ]. Reason: Ntg 13:04:55 200mcg Verapamil 2.5mg Heparin 2500U. A JR 4.0 INFINITI CATHETER FR 5 was advanced over a wire. OMNIPAQUE, 350 MG, 150ML 150ML was us ed for 13:05:05 injections. Recorded Pressure: LV, HR=85, Condition=Condition 1 13:05:52 (Left Ventricle) LV 103/7/13 13:06:00 The LV was manually injected with 10 cc's and visualized. OMNIPAQUE, 350 MG, 150ML 150ML us ed. Recorded Pressure: LV, Ao, HR=78, Condition=Condition 1 13:06:36 (Left Ventricle) LV 94/7/10, (Aorta) Ao 84/52/65 13:06:59 The RCA was injected and visualized at various angles. OMNIPAQUE, 350 MG, 150ML 150ML used . After removing the current catheter a JL 3.5 INFINITI CATHETER FR 5 was advanced over a WIRE, 3 MMJ .035 180CM 13:09:08 180CM. 13:09:10 The LCA was injected and visualized at various angles. OMNIPAQUE, 350 MG, 150ML 150ML used . 13:09:15 HR=71 bpm, NIBP=93/46 mmhg, SpO2=97.0 %, Resp=13 B/min, Pain=0, Roney=10, Banda=2 13:10:09 Catheter was removed 13:10:19 Case End Assessment: Final Case, HR=78 BPM, Rhythm=nsr, NIBP=93/46 mmhg, Chest Pain=0, Edema=None, Color =Normal, Skin = Warm, Dry 13:10:40 Right Pulses: Tae Ped=2, Femoral=2, Radial=2 Neurological: State=Alert, Ox3, STEPHENS Respiration: Resp=15 B/min, SpO2=95 % 13:11:11 Catheter(s) removed without difficulty Radial Compression Device Used. 9 mLs of air placed in BAND, RADIAL COMPRESSION TR SHORT 24 24C M. Affected 13:11:15 hand 95 % O2 saturation. :: Sterile dressing applied to site :: No case complications noted. 13:11:29 Cine recording checked. 13:11:31 Bedside Report will be given. 13:11:33 Contrast Scanned 13:11:33 Verbal Stimulation=2 Physical Stimulation=2 Airway=2 Respiration=2 TOTAL=8. (0=absent, 1=li mited, 2=present) 13:11:43 A Left Heart Cath was performed. 13:13:48 Vitals capture stopped. 13:16:48 Patient moved to stretcher End Study - Contrast Media Used In Study Contrast Total Opened (mL) Total Used (mL) Total Wasted (mL) Omnipaque 25 25 0 End Study - Maximum Contrast Load Max Contrast Load (mL) 450.0 End Study - Radiation Exposure Fluoro Time (minutes) 2.5 End Study - Patient Disposition Complications Transferred To Interventional Outcome No Telemetry Bed No attempt made
[2017-07-25] MEDS ORDERED: MISC INFORMATION XX ONE (13:30)
--- NOTE | 2017-07-25 13:41 | MA ---
cc: JOSEBREANNAJT DATE: 07/25/2017 DATE OF : 1940 PREPROCEDURE DIAGNOSIS 1. Lig-HT-bmkspbylr GA. 2. GERD. POSTPROCEDURE DIAGNOSIS Stress-induced cardiomyopathy/Takotsubo. PROCEDURE PERFORMED 1. Left heart catheterization. 2. Selective right and left coronary angiography. 3. Left ventriculogram. INDICATION [id number] GA, chest pain. PROCEDURE DESCRIPTION The consent was signed. The patient was prepped and draped in a sterile fashion. Using 1% lidocaine for local anesthesia and a micropuncture kit a 6 Armenian sheath was inserted into the right radial artery. An antispasmodic cocktail was given then selective right and left coronary angiography was performed with a JR 4.0 and JL 3.5 diagnostic catheters. Angiography was taken in multiple views. The AR diagnostic catheter was introduced into the ventricle over a wire. This was followed by pressure recordings and ventriculogram on pullback. The patient tolerated the procedure well without complications. Estimated blood loss less than 20 cc. Total contrast was 25 cc. The right arm access site was closed with a TR band. RESULTS LEFT VENTRICLE The left ventricular pressure was 94/7 with an LVEDP of 10. The aortic pressure was 84/52 with an mean of 65. There was no gradient upon pullback from the left ventricle to the aorta. The left ventriculogram revealed hypokinesis of the anterior apical wall with basilar hyperkinesis suggestive of stress-induced cardiomyopathy. Estimated ejection fraction of 40-45%. ANGIOGRAPHY 1. The right coronary artery is a co-dominant system. It is giving off a PDA and a PLB branch. The right coronary artery has no significant blockages. It has some degree of tortuosity. 2. The left main is patent with ABE-III flow. It is giving off the LAD and left circumflex arteries. 3. The LAD is a transapical vessel. It has no significant obstruction. It is tortuous after the second diagonal. The LAD is giving two diagonals which are tortuous and patent with ABE-III flow and nonobstructive coronary artery disease. 4. The left circumflex artery is giving off two main OM vessels, both tortuous with minimal luminal irregularities and no significant obstructive coronary artery disease. The left circumflex has nonobstructive coronary artery disease. CONCLUSIONS 1. Mild LV systolic dysfunction with hypokinesis of the apical wall suggestive of stress-induced cardiomyopathy/Takotsubo. 2. Nonobstructive coronary artery disease. RECOMMENDATIONS 1. Continue aggressive medical management for primary prevention of CAD. 2. Continue ROSA, beta-blockers, baby aspirin. 3. Discontinue heparin drip. 4. Follow with cardiology upon discharge. MD NITHYA Lyman/HUGO /1:16 PM /1:25 PM SANDY
--- NOTE | 2017-07-25 15:42 | ECHRPT ---
Indication: cp CONCLUSIONS The left ventricular systolic function is reduced with an estimated ejection fraction =35%. Normal left ventricular size. Mild mitral valve regurgitation. No aortic valve regurgitation. There is mild tricuspid valve regurgitation. The estimated pulmonary arterial pressure is 39.4 mmHg. BP: 108 / 58 HR: Rhythm: MEASUREMENTS (Male / Female) Normal Values Technical Quality:Good 2D ECHO LV Diastolic Diameter PLAX 4.0 cm 4.2 - 5.9 / 3.9 - 5.3 cm LV Systolic Diameter PLAX 3.5 cm IVS Diastolic Thickness 1.1 cm 0.6 - 1.0 / 0.6 - 0.9 cm LVPW Diastolic Thickness 0.9 cm 0.6 - 1.0 / 0.6 - 0.9 cm LV Relative Wall Thickness 0.5 RV Internal Dim ED PLAX 2.4 cm M-MODE Aortic Root Diameter MM 2.7 cm LA Systolic Diameter MM 3.2 cm LA Ao Ratio MM 1.2 AV Cusp Separation MM 1.2 cm DOPPLER Mitral E Point Velocity 60.2 cm/s Mitral A Point Velocity 71.1 cm/s Mitral E to A Ratio 0.8 LV E' Lateral Velocity 6.6 cm/s Mitral E to LV E' Lateral Ratio 9.1 LV E' Septal Velocity 7.2 cm/s Mitral E to LV E' Septal Ratio 8.3 TR Peak Velocity 271.0 cm/s TR Peak Gradient 29.4 mmHg Right Atrial Pressure 10.0 mmHg Pulmonary Artery Systolic Pressu 39.4 mmHg Right Ventricular Systolic Press 39.4 mmHg FINDINGS LEFT VENTRICLE The left ventricular systolic function is severely reduced with an estimated ejection fraction 35%. Normal left ventricular size. Apical hypokinesis RIGHT VENTRICLE Normal right ventricular size and systolic function. LEFT ATRIUM The left atrial size is normal. RIGHT ATRIUM The right atrial size is normal. ATRIAL SEPTUM Normal atrial septal thickness without atrial level shunting by limited color doppler interrogation. AORTA The aortic root and proximal ascending aorta are normal in size on limited imaging. MITRAL VALVE Structurally normal mitral valve. Mild mitral valve regurgitation. AORTIC VALVE Trileaflet aortic valve. No aortic valve regurgitation. TRICUSPID VALVE Structurally normal tricuspid valve. There is mild tricuspid valve regurgitation. The estimated pulmonary arterial pressure is 39.4 mmHg. PULMONARY VALVE No pulmonary valve regurgitation or stenosis. VESSELS The inferior vena cava is normal in size. PERICARDIUM No pericardial effusion. Shaunna Altamirano MD, FACC (Electronically Signed) Final Date:25 July 2017 15:41
[2017-07-25] MEDS ORDERED: MORPHINE SULFATE 2 MG/ML INJ IV ONE (19:30)
[2017-07-25] MEDS ORDERED: PANTOPRAZOLE SODIUM 40 MG VIAL IV PUSH ONE (19:30)
--- NOTE | 2017-07-25 20:37 | EKG ---
Date Performed: 07/24/2017 Time Performed: 22:09:08 PTAGE: 77 years EKG: Sinus rhythm with PAC(s) Prolonged QT interval Left axis deviation Anteroseptal infarct - age undetermined Inferi or/lateral T wave changes may be due to myocardial ischemia Low QRS voltages in precordial leads Like ly no significant change. Abnormal ECG NO PREVIOUS TRACING DOCTOR: Shaunna Altamirano Interpretating Date/Time 07/25/2017 20:35:39
--- NOTE | 2017-07-25 20:37 | EKG ---
Date Performed: 07/24/2017 Time Performed: 14:16:47 PTAGE: 77 years EKG: ELECTRONIC ATRIAL PACEMAKER MARKED LEFT AXIS DEVIATION ANTERIOR MYOCARDIAL INFARCTION AC [place] ID WHEN COMPARED TO PRIOR EKG PATIENT IS NOW PACED AND HAS ST T WAVE SEGMENTS. Clinical correl ation is recommended PREVIOUS TRACING : 12/19/2014 16.01 DOCTOR: Shaunna Altamirano Interpretating Date/Time 07/25/2017 20:35:08
[2017-07-25] MEDS ORDERED: DULoxetine HCl DR 60 MG CAP PO SCH ×2 (21:00)
[2017-07-26] VITALS (13 sets, daily range): BP systolic 115–127; BP diastolic 55–73; PULSE 67–84; RESP 18; TEMP 98.5–98.8; O2SAT 97–98
[2017-07-26] MEDS: MELATONIN 5 MG TAB PO PRN (00:36)
[2017-07-26] MEDS: ACETAMINOPHEN 325 MG TAB PO PRN (04:53)
[2017-07-26] MEDS: SODIUM CHLORIDE 0.9% FLUSH 10 ML FLUSH IV FLUSH SCH (08:46)
[2017-07-26] MEDS: GABAPENTIN 300 MG CAP PO SCH (08:46)
[2017-07-26] MEDS: METOPROLOL TARTRATE 25 MG TAB PO SCH (08:46)
[2017-07-26] MEDS: ASPIRIN EC 81 MG TABEC PO SCH (08:46)
[2017-07-26] MEDS: PANTOPRAZOLE SOD 20 MG DELAYED RELEASE TAB PO SCH (08:47)
--- NOTE | 2017-07-26 10:48 | HHI.PR ---
Subjective Remarks This is a pleasant 77 y/o female who was hospitalized after complaint of Chest pain, she has History of Mitral valve prolapse gastroesophageal reflux disease, esophageal stricture with dilation, peptic ulcers presented to the hospital with epigastric chest discomfort that started today. On evaluation EKG shows sinus rhythm with T -wave inversions in the lateral leads. The first set of cardiac markers, troponin positive with a value of 2.53, status post Left heart catheterization, found Mild left ventricular systolic dysfunction with hypokinesis of the apical wall suggestive of stress induced/Takotsubo Cardiomyopathy. to continue aggressive medical management for primary prevention , ROSA, BB and Baby aspirin follow cardiology upon discharge. as per Doctor Tavo Calle Objective Vital Signs Date Time Temp Pulse Resp B/P (MAP) Pulse Ox O2 Delivery O2 Flow Rate FiO2 07/26/17 07:30 98.5 68 18 115/55 (75) 98 07/26/17 07:00 80 07/26/17 06:00 68 07/26/17 05:00 74 07/26/17 04:00 67 07/26/17 03:00 98.8 77 18 127/73 (91) 97 07/26/17 03:00 70 07/26/17 02:00 72 07/26/17 01:00 70 07/26/17 00:00 67 07/25/17 23:00 92 07/25/17 23:00 98.3 73 20 150/71 (97) 95 07/25/17 22:00 66 07/25/17 21:00 74 07/25/17 20:00 74 07/25/17 19:00 98.6 98 138/62 (87) 99 07/25/17 19:00 78 07/25/17 18:01 67 07/25/17 17:00 70 07/25/17 16:00 74 07/25/17 15:15 98.2 72 18 106/55 (72) 94 07/25/17 15:00 73 07/25/17 14:00 64 07/25/17 12:04 61 07/25/17 11:20 98.7 65 16 130/62 (84) 100 07/25/17 11:04 70 I/O 07/25/17 07/25/17 07/25/17 07/26/17 07/26/17 07/26/17 07:00 15:00 23:00 07:00 15:00 23:00 Intake Total 473 ml 61 ml 360 ml 480 ml Balance 473 ml 61 ml 360 ml 480 ml Intake Oral 473 ml 360 ml 480 ml IV Total 61 ml # Voids 3 2 3 # Bowel Movements 0 1 1 Result Diagram: 07/25/17 0455 07/25/17 0500 Imaging Last Impressions Chest X-Ray 07/24/17 8357 Signed Impressions: Service Date/Time: Monday, July 24, 2017 14:58 - CONCLUSION: No acute disease. Kaleb Yin MD FACR Procedures Cardiac Catheterization 07/25/17 Other Results Laboratory Tests Test 07/24/17 14:40 07/24/17 14:51 07/25/17 04:55 07/25/17 05:00 Prothrombin Time 10.9 SEC Prothromb Time International Ratio 1.0 RATIO Blood Urea Nitrogen 10 MG/DL 8 MG/DL Creatinine 0.69 MG/DL 0.50 MG/DL Random Glucose 83 MG/DL 89 MG/DL Total Protein 7.6 GM/DL Albumin 3.7 GM/DL Calcium Level 8.8 MG/DL 8.2 MG/DL Magnesium Level 1.9 MG/DL Alkaline Phosphatase 63 U/L Aspartate Amino Transf (AST/SGOT) 37 U/L Alanine Aminotransferase (ALT/SGPT) 23 U/L Total Bilirubin 0.6 MG/DL Sodium Level 135 MEQ/L 139 MEQ/L Potassium Level 3.2 MEQ/L 3.7 MEQ/L Chloride Level 100 MEQ/L 105 MEQ/L Carbon Dioxide Level 27.2 MEQ/L 25.8 MEQ/L Total Creatine Kinase 127 U/L Creatine Kinase MB 8.2 NG/ML Lipase 96 U/L Lactic Acid Level 0.7 mmol/L White Blood Count 6.6 TH/MM3 Red Blood Count 3.86 MIL/MM3 Hemoglobin 11.6 GM/DL Hematocrit 35.1 % Mean Corpuscular Volume 90.9 FL Mean Corpuscular Hemoglobin 30.0 PG Mean Corpuscular Hemoglobin Concent 33.0 % Red Cell Distribution Width 14.4 % Platelet Count 169 TH/MM3 Mean Platelet Volume 7.6 FL Neutrophils (%) (Auto) 71.1 % Lymphocytes (%) (Auto) 19.1 % Monocytes (%) (Auto) 8.6 % Eosinophils (%) (Auto) 0.7 % Basophils (%) (Auto) 0.5 % Neutrophils # (Auto) 4.7 TH/MM3 Lymphocytes # (Auto) 1.3 TH/MM3 Monocytes # (Auto) 0.6 TH/MM3 Eosinophils # (Auto) 0.0 TH/MM3 Basophils # (Auto) 0.0 TH/MM3 CBC Comment DIFF FINAL Differential Comment Activated Partial Thromboplast Time 43.1 SEC Anion Gap 8 MEQ/L Estimat Glomerular Filtration Rate 119 ML/MIN Troponin I 2.60 NG/ML Objective Remarks GENERAL: This is a well-nourished, well-developed patient, in no apparent distress. Hard of hearing. SKIN: No rashes, ecchymoses or lesions. Cool and dry. HEAD: Atraumatic. Normocephalic. No temporal or scalp tenderness. EYES: Pupils equal round and reactive. Extraocular motions intact. No scleral icterus. No injection or drainage. ENT: Nose without bleeding, purulent drainage or septal hematoma. Throat without erythema, tonsillar hypertrophy or exudate. Uvula midline. Airway patent. NECK: Trachea midline. No JVD or lymphadenopathy. Supple, nontender, no meningeal signs. CARDIOVASCULAR: Regular rate and rhythm without murmurs, gallops, or rubs. RESPIRATORY: Clear to auscultation. Breath sounds equal bilaterally. No wheezes , rales, or rhonchi. GASTROINTESTINAL: Abdomen soft, non-tender, nondistended. No hepato-splenomegaly , or palpable masses. No guarding. MUSCULOSKELETAL: Right radial area no bruit, edema or ecchymosis. NEUROLOGICAL: Awake and alert. Cranial nerves II through XII intact. Motor and sensory grossly within normal limits. Five out of 5 muscle strength in all muscle groups. Normal speech. Medications and IVs Current Medications Medications (Trade) Dose Ordered Sig/Guillermo Route Start Time Stop Time Status Last Admin (NS Flush) 2 ml UNSCH PRN IV FLUSH 07/24/17 16:45 (NS Flush) 2 ml BID IV FLUSH 07/24/17 21:00 07/26/17 08:46 (Tylenol) 650 mg Q4H PRN PO 07/24/17 16:45 07/26/17 04:53 (Zofran Inj) 4 mg Q6H PRN IVP 07/24/17 16:45 07/24/17 22:19 (Narcan Inj) 0.4 mg UNSCH PRN IV PUSH 07/24/17 16:45 (Milk Of Magnesia Liq) 30 ml Q12H PRN PO 07/24/17 16:45 (Senokot) 17.2 mg Q12H PRN PO 07/24/17 16:45 (Dulcolax Supp) 10 mg DAILY PRN RECTAL 07/24/17 16:45 (Lactulose Liq) 30 ml DAILY PRN PO 07/24/17 16:45 (Neurontin) 600 mg TID PO 07/25/17 09:00 07/26/17 08:46 (Melatonin) 10 mg HS PRN PO 07/24/17 21:45 07/26/17 00:36 (Cymbalta Dr) 60 mg HS PO 07/25/17 21:00 07/25/17 20:26 (Nitrostat Sl) 0.3 mg Q5M PRN SL 07/24/17 23:00 07/24/17 23:34 (Lopressor) 25 mg Q12HR PO 07/25/17 09:00 07/26/17 08:46 (Ecotrin Ec) 81 mg DAILY PO 07/25/17 09:00 07/26/17 08:46 (Protonix) 20 mg DAILY PO 07/25/17 09:00 07/26/17 08:47 A/P Assessment and Plan 1. 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 history of unknown arrhythmia on Verapamil as per Cardiology to continue Beta Blockers and Aspirin 3. Breast cancer status post mastectomy 4. History of gastric ulcers secondary to meloxicam in 2016 continue PPIs. 5. peripheral Neuropathy by history 6. Hypokalemia on admission replaced. 7. Mitral Valve prolapse by history Discussed Condition With Patient and nurse okay to discharge home and follow up with PCP and with human services care specialist on discharge. Discharge Planning Discharge home today. Gilbert Cabral MD Jul 26, 2017 10:48
[2017-07-26] MEDS ORDERED: ASPI-99 PO (10:52)
[2017-07-26] MEDS ORDERED: METO25TA3 PO (10:52)
--- NOTE | 2017-07-26 10:57 | HHI.DS ---
Discharge Summary Admission Date Jul 24, 2017 at 17:03 Discharge Date: Jul 26, 2017 Admitting Diagnosis (1) NSTEMI (non-ST elevated myocardial infarction) ICD Code: I21.4 - Non-ST elevation (NSTEMI) myocardial infarction Diagnosis: Principal Status: Acute Procedures Cardiac Cath performed. Brief History - From Admission 77-year-old female with a history of mitral valve prolapse, GERD, who presents with a one-day history of constant, nonradiating epigastric pressure sensation began around 5 PM on 07/23. She also reports nausea with vomiting food, however this has resolved. Denies any hematemesis. She reports subjective fevers on 07/23, as well as chills today. Denies any shortness of breath, cough , dysuria. CBC/BMP: 07/25/17 0455 07/25/17 0500 Significant Findings Laboratory Tests Test 07/24/17 14:40 07/24/17 14:51 07/24/17 21:32 07/25/17 04:55 Neutrophils (%) (Auto) 89.1 % (16.0-70.0) 71.1 % (16.0-70.0) Lymphocytes (%) (Auto) 6.1 % (9.0-44.0) Neutrophils # (Auto) 8.3 TH/MM3 (1.8-7.7) Lymphocytes # (Auto) 0.6 TH/MM3 (1.0-4.8) Sodium Level 135 MEQ/L (136-145) Potassium Level 3.2 MEQ/L (3.5-5.1) Estimat Glomerular Filtration Rate 82 ML/MIN (>89) Creatine Kinase MB 8.2 NG/ML (0.5-3.6) Troponin I 2.53 NG/ML (0.02-0.05) 3.24 NG/ML (0.02-0.05) Red Blood Count 3.86 MIL/MM3 (4.00-5.30) Monocytes (%) (Auto) 8.6 % (0.0-8.0) Activated Partial Thromboplast Time 43.1 SEC (24.3-30.1) Test 07/25/17 05:00 Calcium Level 8.2 MG/DL (8.5-10.1) Troponin I 2.60 NG/ML (0.02-0.05) Imaging Last Impressions Chest X-Ray 07/24/17 1437 Signed Impressions: Service Date/Time: Monday, July 24, 2017 14:58 - CONCLUSION: No acute disease. Kaleb Yin MD FACR PE at Discharge GENERAL: This is a well-nourished, well-developed patient, in no apparent distress. Hard of hearing. SKIN: No rashes, ecchymoses or lesions. Cool and dry. HEAD: Atraumatic. Normocephalic. No temporal or scalp tenderness. EYES: Pupils equal round and reactive. Extraocular motions intact. No scleral icterus. No injection or drainage. ENT: Nose without bleeding, purulent drainage or septal hematoma. Throat without erythema, tonsillar hypertrophy or exudate. Uvula midline. Airway patent. NECK: Trachea midline. No JVD or lymphadenopathy. Supple, nontender, no meningeal signs. CARDIOVASCULAR: Regular rate and rhythm without murmurs, gallops, or rubs. RESPIRATORY: Clear to auscultation. Breath sounds equal bilaterally. No wheezes , rales, or rhonchi. GASTROINTESTINAL: Abdomen soft, non-tender, nondistended. No hepato-splenomegaly , or palpable masses. No guarding. MUSCULOSKELETAL: Right radial area no bruit, edema or ecchymosis. NEUROLOGICAL: Awake and alert. Cranial nerves II through XII intact. Motor and sensory grossly within normal limits. Five out of 5 muscle strength in all muscle groups. Normal speech. Hospital Course This is a pleasant 77 y/o female who was hospitalized after complaint of Chest pain, she has History of Mitral valve prolapse gastroesophageal reflux disease, esophageal stricture with dilation, peptic ulcers presented to the hospital with epigastric chest discomfort that started today. On evaluation EKG shows sinus rhythm with T -wave inversions in the lateral leads. The first set of cardiac markers, troponin positive with a value of 2.53, status post Left heart catheterization, found Mild left ventricular systolic dysfunction with hypokinesis of the apical wall suggestive of stress induced/Takotsubo Cardiomyopathy. to continue aggressive medical management for primary prevention , ROSA, BB and Baby aspirin follow cardiology upon discharge. as per Doctor Tavo Calle Assessment and Plan 1. 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 history of unknown arrhythmia on Verapamil as per Cardiology to continue Beta Blockers and Aspirin 3. Breast cancer status post mastectomy 4. History of gastric ulcers secondary to meloxicam in 2016 continue PPIs. 5. peripheral Neuropathy by history 6. Hypokalemia on admission replaced. 7. Mitral Valve prolapse by history Discussed Condition With Patient and nurse okay to discharge home and follow up with PCP and with medication specialist on discharge. Discharge Planning Discharge home today. Pt Condition on Discharge: Good Discharge Disposition: Discharge Home Discharge Time: <= 30 minutes Discharge Instructions DIET: Follow Instructions for: Heart Healthy Diet Activities you can perform: Regular-No Restrictions Other Activity Instructions: Avoid strenous exercise until seen by medication specialist and clear for exercise Gilbert Cabral MD Jul 26, 2017 10:57
[2017-07-26] MEDS ORDERED: LISI2.5T3 PO (11:01)
--- NOTE | 2017-07-26 15:46 | EKG ---
Date Performed: 07/25/2017 Time Performed: 17:41:42 PTAGE: 77 years EKG: Ectopic atrial rhythm PACs Left axis deviation Inferior infarct - age undetermined Anterose ptal infarct Lateral T wave changes Low QRS voltages in precordial leads Abnormal ECG PREVIOUS TRACING : 07/24/2017 22.09 Compared to prior tracing no significant change DOCTOR: Margaret Mann Interpretating Date/Time 07/26/2017 15:44:03
== END 2017-07-26 12:25 | disposition home or self-care (01) | DRG 287 ==
LOC: NEPC 13:49 → NEDA 17:03 → HCPC 18:30 → HCIN 07-25 08:23
PROVIDERS: ADMIT Internal Medicine; ATTEND Internal Medicine
PROC: B2111ZZ Fluoroscopy of Multiple Coronary Arteries using Low Osmolar Contrast (ICD-10-PCS; 2017-07-25)
PROC: B2151ZZ Fluoroscopy of Left Heart using Low Osmolar Contrast (ICD-10-PCS; 2017-07-25)
PROC: 4A023N7 Measurement of Cardiac Sampling and Pressure, Left Heart, Percutaneous Approach (ICD-10-PCS; principal; 2017-07-25 15:00)
DX: I51.81 Takotsubo syndrome (principal); G62.9 Polyneuropathy, unspecified; I34.1 Nonrheumatic mitral (valve) prolapse; Z68.1 Body mass index [BMI] 19.9 or less, adult; E87.6 Hypokalemia; K21.9 Gastro-esophageal reflux disease without esophagitis; R63.4 Abnormal weight loss; Z96.652 Presence of left artificial knee joint; I25.10 Atherosclerotic heart disease of native coronary artery without angina pectoris; Z87.11 Personal history of peptic ulcer disease; Z85.3 Personal history of malignant neoplasm of breast
CPT/HCPCS: 71010; 80048; 80053; 82550; 82552; 83605; 83690; 83735; 84484; 85025; 85610; 85730; 87040; 93005; 93306; 93458; 99152; 99285; C1769; C1893; C9113; J1644; J2250; J2270; J2405; J3010